=== PATIENT | male | born 1985 | race African-American/Black ===

== ENCOUNTER 2023-11-02 04:23 | Emergency (ER) | payer OTHER ==
[~2023-11-02] VITALS: Ht 180.3 cm; Wt 93.0 kg
[2023-11-02] MEDS ORDERED: KETOROLAC TROMETHAMINE INJ 30 MG/ML VIAL ONE (05:42)
[2023-11-02] MEDS: KETOROLAC TROMETHAMINE INJ 60 MG/2 ML VIAL IM ONE (05:43)
[2023-11-02] MEDS ORDERED: NAPR-1009 PO (05:52)
[2023-11-02 07:20] VITALS: BP 124/64; TEMP 98; O2SAT 100
== END 2023-11-02 07:20 | disposition home or self-care (01) ==
LOC: ER 04:26
DX: M54.50 Low back pain, unspecified (principal); Z60.2 Problems related to living alone
CPT/HCPCS: 99285; 72131; 96372; J1885